=== PATIENT | female | born 1960 | race Two or more races ===

== ENCOUNTER 2024-12-01 08:57 | Emergency (ER) | payer BC ==
[~2024-12-01] VITALS: Ht 152.4 cm; Wt 72.7 kg
[~2024-12-01 08:57] MED LIST: ADV50250 INH; ALBU18HF2 INH; ATRIN IH
[2024-12-01 09:37] VITALS: TEMP 97.8
[2024-12-01 09:46] LABS: BASOPHILS # (AUTO) 0.1 X10'3 (0-0.2); EOSINOPHILS # (AUTO) 0.5 X10'3 (0-0.9); EOSINOPHILS % (AUTO) 7.1 % (0-6); HEMATOCRIT 41.4 % (35.0-45.0); HEMOGLOBIN 13.9 g/dl (12.0-16.0); LYMPHOCYTES # (AUTO) 2.1 X10'3 (1.1-4.8); LYMPHOCYTES % (AUTO) 26.9 % (21-51); MEAN CORPUSCULAR HEMOGLOBIN 29.8 PG (27.0-31.0); MEAN CORPUSCULAR HGB CONC 33.6 g/dL (33.0-36.5); MEAN CORPUSCULAR VOLUME 88.5 FL (78-98); MEAN PLATELET VOLUME 7.8 FL (7.4-10.4); MONOCYTES # (AUTO) 0.6 X10'3 (0-0.9); MONOCYTES % (AUTO) 7.3 % (2-12); NEUTROPHILS # (AUTO) 4.4 X10'3 (1.8-7.7); NEUTROPHILS % (AUTO) 57.7 % (42-75); PLATELET COUNT 450 X10'3 (140-440); RED BLOOD COUNT 4.68 X10'6 (4.20-5.60); RED CELL DISTRIBUTION WIDTH 13.4 % (11.5-14.5); WHITE BLOOD COUNT 7.7 X10'3 (4.5-11.0)
[2024-12-01 09:51] LABS: ALANINE AMINOTRANSFERASE 17 U/L (12-78); ALBUMIN 3.9 G/DL (3.4-5.0); ALBUMIN/GLOBULIN RATIO 0.9 (1.1-1.5); ALKALINE PHOSPHATASE 93 IU/L (46-116); ANION GAP 7 (8-16); ASPARTATE AMINO TRANSFERASE 21 U/L (10-37); BILIRUBIN,TOTAL 0.4 MG/DL (0.1-1.0); BLOOD UREA NITROGEN 12 MG/DL (7-18); BUN/CREATININE RATIO 15.4 (10.0-20.0); CALCIUM 9.2 MG/DL (8.5-10.1); CHLORIDE 104 MMOL/L (99-107); CREATININE 0.78 MG/DL (0.40-0.90); GLUCOSE 100 MG/DL (70-104); LIPASE 24 U/L (16-77); POTASSIUM 4.4 MMOL/L (3.5-5.1); SODIUM 137 MMOL/L (135-145); TOTAL CARBON DIOXIDE 25.9 MMOL/L (24-32); TOTAL PROTEIN 8.3 G/DL (6.4-8.2); eCRCL 52 ML/MIN; eGFR 74 ML/MIN
[2024-12-01] MEDS: ketorolac trometh 15mg/ml vial 15 MG/ML ML IM ONE (09:55)
[2024-12-01 09:56] LABS: BILIRUBIN,URINE NEGATIVE (Neg); CLARITY,URINE CLEAR (Clear); COLOR,URINE YELLOW (Yellow); GLUCOSE, URINE NEGATIVE (Neg); KETONES,URINE NEGATIVE (Neg); LEUKOCYTE ESTERASE ,URINE NEGATIVE (Neg); NITRITES, URINE NEGATIVE (Neg); OCCULT BLOOD,URINE TRACE-INTACT (Neg); PROTEIN,URINE NEGATIVE (Neg); UROBILINOGEN,URINE 0.2 E.U/dL (0.2-1.0)
[2024-12-01 09:57] LABS: UA COLLECTION TYPE URINAL
[2024-12-01 09:58] LABS: URINE HCG NEGATIVE (NEG)
[2024-12-01 10:03] LABS: BACTERIA,URINE FEW /HPF (Neg); MUCUS STRANDS FEW /LPF (Neg); SQUAMOUS EPITHELIAL CELL,UR FEW /LPF (FEW); WBC,URINE 0-4 /HPF (0-4)
[2024-12-01 10:04] LABS: TRANSITIONAL EPI CELLS,URINE FEW /HPF
[2024-12-01] MEDS: normal saline 1000ML IV soln IVB ONE (10:05)
[2024-12-01] MEDS ORDERED: VALA100031 PO (10:14)
[2024-12-01 10:55] VITALS: BP 142/74; PULSE 67; RESP 15; O2SAT 97
== END 2024-12-01 10:58 | disposition home or self-care (01) ==
LOC: ER 08:58
DX: B02.9 Zoster without complications (principal); Z79.52 Long term (current) use of systemic steroids; Z79.899 Other long term (current) drug therapy
CPT/HCPCS: 36415; 80053; 81001; 81025; 83690; 84145; 85025; 96372; 99283; J1885

== ENCOUNTER 2025-01-10 12:25 | Emergency (ER) | payer BC ==
[~2025-01-10] VITALS: Ht 152.4 cm; Wt 68.7 kg
[~2025-01-10 12:25] MED LIST changes: +VALA100031 PO
[2025-01-10 12:45] VITALS: BP 128/75; PULSE 79; RESP 18; O2SAT 97
[2025-01-10] MEDS ORDERED: AMIT10TA6 PO (13:28)
[2025-01-10 13:35] VITALS: TEMP 98
== END 2025-01-10 13:37 | disposition home or self-care (01) ==
LOC: ER 12:26
DX: B02.29 Other postherpetic nervous system involvement (principal); G47.9 Sleep disorder, unspecified
CPT/HCPCS: 99283